=== PATIENT | female | born 1980 | race Caucasian/White ===

== ENCOUNTER 2019-12-21 16:37 | Emergency (ER) | payer OTHER ==
[~2019-12-21] VITALS: Ht 172.7 cm; Wt 97.5 kg
[2019-12-21] MEDS ORDERED: LEVOTHYROXINE125 MCG PO (17:04)
[2019-12-21] MEDS ORDERED: ZOFRAN4 MG PO (19:47)
--- NOTE | 2019-12-22 14:35 | EKG ---
[facility] [address] [facility] [address] [place], [place] [address] Signed Sinus tachycardia Otherwise normal ECG No previous ECGs available Confirmed by JAVIER KEN DO ([id number]) on 12/22/2019 2:35:02 PM Electronically Signed By: JAVIER KEN DO 12/22/19 1435 PATIENT NAME: COLBY BAKER Electrocardiogram DATE OF : 80 PHYSICIAN: JAVIER KEN DO REPORT #: [id number] REPORT IS CONFIDENTIAL AND NOT TO BE RELEASED WITHOUT AUTHORIZATION
== END 2019-12-21 20:21 | disposition home or self-care (01) ==
LOC: ED 16:37
DX: U07.1 COVID-19 (principal); Z88.0 Allergy status to penicillin; Z79.899 Other long term (current) drug therapy
CPT/HCPCS: 71045; 80053; 83605; 85025; 93005; 93010; 96361; 96374; 99285-25; J2405; J7030

== ENCOUNTER 2024-11-06 12:36 | Emergency (ER) | payer BC, OTHER ==
[~2024-11-06] VITALS: Ht 172.7 cm; Wt 111.0 kg
[~2024-11-06 12:36] MED LIST: LEVOTHYROXINE125 MCG PO; ZOFRAN4 MG PO
[2024-11-06] MEDS ORDERED: DIPHTH,PERTUSS(ACELL),TET VAC 0.5 ML SYRINGE IM ONE (13:45)
[2024-11-06 15:47] VITALS: BP 117/70
== END 2024-11-06 15:47 | disposition home or self-care (01) ==
LOC: ED 12:36
DX: S61.213A Laceration without foreign body of left middle finger without damage to nail, initial encounter (principal); W29.8XXA Contact with other powered hand tools and household machinery, initial encounter; Z88.0 Allergy status to penicillin; Z79.890 Hormone replacement therapy; Z23 Encounter for immunization
CPT/HCPCS: 90471; 90715; 99282-25